=== PATIENT | female | born 1945 | race Caucasian/White ===

== ENCOUNTER 2023-02-16 09:55 | Outpatient (CLI) | payer MEDICARE, BC, SELFPAY | END 2023-02-16 09:56 | disposition home or self-care (01) | LOC: INJ CL 09:56 | PROVIDERS: PCP Internal Medicine; Visit Provider Family Medicine | DX: M54.16 Radiculopathy, lumbar region (principal); M51.36 Other intervertebral disc degeneration, lumbar region | CPT/HCPCS: 64483; Q9966 ==

== ENCOUNTER 2024-07-25 10:50 | Outpatient (CLI) | payer MEDICARE, BC, SELFPAY ==
--- OUTSIDE RECORDS SUMMARY | 2024-07-25 10:55 | XMS_ITS | Continuity of Care Document ---
Author Organization [facility], [facility] Office Address [facility] [facility] [address] [address] Assessment Encounter Date Assessment Date Assessment LastModified by Organization Details LastModified Time 06/12/2024 06/12/2024 Discussed medical conditions with patient today. For tinea pedis, I prescribed an antifungal ointment with two refills to ensure the patient has enough medication. I advised the patient to continue using the ointment, especially on the heel, which is the most stubborn area due to its thicker skin. Refill provided today For onychomycosis, I discussed the use of Formula 3, an antifungal treatment available at the clinic that can improve nail appearance and help eradicate fungus. Patient purchased today. Instructed her on proper use. I informed the patient that this treatment requires daily application and may take up to eight months to show significant improvement. The patient expressed interest in trying this treatment and having their nails done at the clinic to avoid difficulties with clipping. She will return to clinic in 2-3 weeks or sooner should any problems arise. Patient verbalized understanding and is in agreement with the above treatment plan. [email or web address] Not available 06/12/2024 13:50:52 Plan of Treatment Reminders Order Date Submit Date Provider Last Modified By Organization Details Last Modified Time Details Appointments PAL 15 2024 11:00A Angi SILVA DPM Not available Not available Not available Lab None recorded . Referral None recorded . Procedures None recorded . Surgeries None recorded . Imaging None recorded . Medication Orders clotrima zole-bet amethaso ne 1 %-0.05 % topical cream 2023 024 [facility], [place], [address] [place] [address], [id number], 06/12/2024 11:57:53 Patient TargetsNo targets recorded. Patient InstructionsNo instructions recorded. Reason for Referral None Reported. 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, Harp's_; Original Code: 355.6 Orig inal Codesystem : ICD-9-CM C lassificat ion: Medical Co nfirmation Status: Confirmed Not Available [facility] 3 09:01:04 Benign neoplasm of bone 37313513 Active 2013 Osteocarti laginous Exostoses; Original Code: 213.9 Orig inal Codesystem : ICD-9-CM C lassificat ion: Medical Co nfirmation Status: Confirmed Not Available [facility] 3 09:01:04 Onychomyc osis of toenails 341816777 Active 2018 Onychomyco sis of toenails; Original Code: 6227698004 Original Codesystem : SNOMED CT Classif ication: Medical Co nfirmation Status: Confirmed Not Available [facility] 3 09:01:04 Osteoarth ritis 037273468 Active 2013 Osteoarthr itis; Original Code: 715.90 Star ginal Codesystem : ICD-9-CM C lassificat ion: Medical Co nfirmation Status: Confirmed Not Available [facility] 3 09:01:04 Plantar fasciitis 078582558 Active 2018 Plantar fasciitis; Original Code: 437657453 Original Codesystem : SNOMED CT Classif ication: Medical Co nfirmation Status: Confirmed Not Available [facility] 3 09:01:04 Onychomyc osis due to dermatoph yte 250688375 Active 2010 Onychomyco sis..; Original Code: 110.1 Orig inal Codesystem : ICD-9-CM C lassificat ion: Medical Co nfirmation Status: Confirmed Not Available [facility] 3 09:01:04 Tinea pedis 0453873 Active 2010 Tinea pedis..; Original Code: 110.4 Orig inal Codesystem : ICD-9-CM C lassificat ion: Medical Co nfirmation Status: Confirmed Not Available [facility] 3 09:01:04 Disorder of skin 32272478 Active 2013 Fissure in Skin; Original Code: 709.8 Orig inal Codesystem : ICD-9-CM C lassificat ion: Medical Co nfirmation Status: Confirmed Not Available [facility] 3 09:01:04 Psoriasis 8307789 Active 2013 Psoriasis and Similar Disorder; Original Code: 696.8 Orig inal Codesystem : ICD-9-CM C lassificat ion: Medical Co nfirmation Status: Confirmed Not Available [facility] 3 09:01:05 Acquired unequal leg length Active 2012 _Discrepan cy, leg length_; Original Code: 736.81 Star ginal Codesystem : ICD-9-CM C lassificat ion: Medical Co nfirmation Status: Confirmed Not Available [facility] 3 09:01:05 Corns and callus Active 2013 Corns and Callositie s; Original Code: 700 Origin al Codesystem : ICD-9-CM C lassificat ion: Medical Co nfirmation Status: Confirmed Not Available [facility] 3 09:01:05 Problem Notes None recorded. Procedures Surgical History Date Name Laterality Status Provider Name and Address Organization Details Recorded Time 07/03/[address] Stern completed JONATHAN SILVA, NALLELY [address] [place], [address], [facility] 07/03/2024 13:48:02 03/13/[address] Santana completed JONATHAN SILVA DPM [address] [place], [address], [facility] 03/13/2024 17:19:27 02/10/[address] Santana completed Ale Nolen [facility] 02/15/2024 13:00:52 01/26/[address] Santana completed Ale Nolen [place] - [facility] 2024 12:22:10 Imaging Results None recorded. Procedure Notes None recorded. Medical Equipment None Reported. Medications Name Sig Start Date Stop Date Status Note LastModified by Organization Details LastModified Time losartan 50 mg tablet TAKE ONE TABLET BY MOUTH EVERY DAY active Not Available Not Available No t Available latanoprost 0.005 % eye drops INSTILL ONE DROP IN AFFECTED EYE(S) EVERY EVENING active Not Available Not Available No t Available atorvastati n 40 mg tablet TAKE ONE TABLET BY MOUTH AT BEDTIME active Not Available Not Available No t Available atorvastati n 80 mg tablet active Not Available Not Available Not Available carvedilol 25 mg tablet TAKE ONE TABLET BY MOUTH TWICE A DAY WITH MEALS active Not Available Not Available No t Available prednisone 10 mg tablet TAKE 2 TABLETS BY MOUTH TWICE A DAY FOR 3 DAYS THEN TAKE 1 TABLET THREE TIMES A DAY FOR 3 DAYS THEN TAKE 2 TABLETS EVERY DAY FOR 3 DAYS THEN 05/08 completed Not Available Not Available Not Available ketoconazol e 2 % shampoo 05/08 completed Not Available Not Available Not Available loperamide 2 mg capsule TAKE 2 CAPSULES BY MOUTH WITH 1ST LOOSE STOOL THEN 1 CAPSULE WITH EACH SUBSEQUEN T LOOSE STOOL MAX 8 CAPSULES PER 24HRS 05/08 completed Not Available Not Available Not Available azithromyci n 250 mg tablet TAKE TWO TABLETS BY MOUTH ONE DOSE ON THE FIRST DAY, THEN TAKE ONE DAILY THEREAFTE R. 05/08 completed Not Available Not Available Not Available fluconazole 150 mg tablet TAKE ONE TABLET BY MOUTH ONCE active Not Available Not Available No t Available clopidogrel 75 mg tablet 05/08 completed Not Available Not Available Not Available minoxidil 2.5 mg tablet TAKE ONE-HALF TABLET BY MOUTH EVERY DAY 05/08 completed Not Available Not Available Not Available tramadol 50 mg tablet TAKE ONE TABLET BY MOUTH TWICE A DAY active Not Available Not Available No t Available triamcinolo ne acetonide 0.1 % topical cream APPLY TOPICALLY TO AFFECTED AREA(S) TWO TIMES A DAY 05/08 completed Not Available Not Available Not Available spironolact one 25 mg tablet TAKE ONE TABLET BY MOUTH EVERY DAY active Not Available Not Available No t Available trazodone 100 mg tablet TAKE ONE-HALF TABLET BY MOUTH AT BEDTIME NEEDED FOR SLEEP active Not Available Not Available No t Available triamcinolo ne acetonide 0.1 % topical ointment active Not Available Not Available Not Available clotrimazol e-betametha sone 1 %-0.05 % topical cream APPLY TO THE AFFECTED SURROUNDI NG AREA OF SKIN BY TOPICAL ROUTE 2 TIMES PER DAY IN THE MORNING AND EVENING FOR 2 WEEKS active Not Available Not Available No t Available gabapentin 300 mg capsule TAKE ONE CAPSULE BY MOUTH TWICE A DAY THEN TAKE TWO CAPSULES BY MOUTH AT BEDTIME active Not Available Not Available No t Available codeine 10 mg-guaifene sin 100 mg/5 mL oral liquid TAKE 5ML BY MOUTH EVERY 4 HOURS IF NEEDED FOR COUGH 05/08 completed Not Available Not Available Not Available furosemide 20 mg tablet TAKE ONE TABLET BY MOUTH EVERY DAY NEEDED FOR LEG EDEMA, GAIN OF 5LBS IN 2-3 DAYS OR MORE WINDED THAN USUAL LAYING DOWN active Not Available Not Available No t Available clobetasol 0.05 % topical ointment APPLY ONE APPLICATI ON TOPICALLY AT BEDTIME. APPLY TO VULVA AND PERIRECTA L AREA FOR UP TO 2 WEEKS AT A TIME active Not Available Not Available No t Available ketoconazol e 2 % topical cream APPLY TO AFFECTED AREA(S) TWO TIMES A DAY 05/08 completed Not Available Not Available Not Available clobetasol 0.05 % scalp solution APPLY TO SCALP 2X DAILY FOR UP TO TWO WEEKS AT A TIME. TAKE A TWO WEEK BREAK. REPEAT. active Not Available Not Available No t Available finasteride 1 mg tablet TAKE ONE TABLET BY MOUTH EVERY DAY active Not Available Not Available No t Available Vitals None Recorded Social History None recorded. Functional Status None recorded. Mental Status None recorded. Family History Nothing Reported. Medical History No medical history recorded. Gynecological HistoryNo gynecological history recorded. 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 51063 G57.62 [id number] JONATHAN SILVA DPM [facility] [address] [place] [address] 06/12/2024 11:32:06 06/13/2024 13:14:17 Tinea pedis 7257447 B35.3 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 15276627 M19.072 Sabrina n euroma of left foot 9134069228 06015 G57.62 Health Concerns Section Related Observation LastModified by Organization Detai ls LastModified Time None Recorded Concern Status LastModified by Organization Details LastModified Time None Recorded Payers Encounter Date Sequence Insurance Name Policy Number Policy Navarro Covered Member ID Navarro Member ID Guarantor Name 06/12/2024 1 [employer]: ([place]IC[place]ACEMENT PPO) [id number] Sheila jenkins [id number] Sheila romero Notes Date Note Type Note Provider Name and Address Organization Details Recorded Time 06/12/2024 text/html The patient presents today for follow-up management of tinea pedis. The patient reports using the prescribed antifungal ointment for two weeks, but has since run out of the medication. The patient then tried clobetasol propionate, which she believes improved the condition. The patient mentions that the heel still shows some signs of the condition but overall, the foot is much better. The patient also reports no issues with their previously diagnosed neuroma. She also complains of thickness and discoloration to her toenails. JONATHAN SILVA DPM [address] [place], [address], [facility] - [facility] 06/12/2024 13:51:13 OBGyn Episode No OBEpisode recorded.
--- OUTSIDE RECORDS SUMMARY | 2024-07-25 10:55 | XMS_ITS | Continuity of Care Document ---
Author Organization [facility] - [facility], [place] Office Address [address] [facility] [address] [place] [address] Assessment Encounter Date Assessment Date Assessment LastModified by Organization Details LastModified Time 05/22/2024 05/22/2024 Discussed medical conditions with patient today. For the tinea pedis, I advised the patient to continue using the antifungal medication twice a day and to try wearing a sock at night to help trap the medication. I recommended continuing this regimen for another two weeks. If the condition does not improve, we may consider a short course of oral antifungal medication. I also suggested using Lysol in the shoes to kill any remaining fungus. For the left third inner space neuroma, I confirmed that the patient is using orthotics consistently and finds them helpful. I discussed the option of trying a plain liner insert instead of the pedpillow insert to see if it provides a better fit. These were provided for her today to try. She will return to clinic in 2-3 weeks or sooner should any problems arise. Patient verbalized understanding and is in agreement with the above treatment plan. [email or web address] Not available 05/22/2024 12:50:20 Plan of Treatment Reminders Order Date Submit Date Provider Last Modified By Organization Details Last Modified Time Details Appointments PAL 15 025 11:00AM JONATHAN SILVA DPM Not available Not available Not available Lab None record ed. Referral None record ed. Procedures None record ed. Surgeries None record ed. Imaging None record ed. Medication Orders None record ed. Patient TargetsNo targets recorded. Patient InstructionsNo instructions recorded. Reason for Referral None Reported. 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, Harp's_; Original Code: 355.6 Orig inal Codesystem : ICD-9-CM C lassificat ion: Medical Co nfirmation Status: Confirmed Not Available [facility] 3 09:01:04 Benign neoplasm of bone 43122849 Active 2013 Osteocarti laginous Exostoses; Original Code: 213.9 Orig inal Codesystem : ICD-9-CM C lassificat ion: Medical Co nfirmation Status: Confirmed Not Available [facility] 3 09:01:04 Onychomyc osis of toenails 250849006 Active 2018 Onychomyco sis of toenails; Original Code: 7038152994 Original Codesystem : SNOMED CT Classif ication: Medical Co nfirmation Status: Confirmed Not Available [facility] 3 09:01:04 Osteoarth ritis 485961988 Active 2013 Osteoarthr itis; Original Code: 715.90 Star ginal Codesystem : ICD-9-CM C lassificat ion: Medical Co nfirmation Status: Confirmed Not Available [facility] 3 09:01:04 Plantar fasciitis 422008617 Active 2018 Plantar fasciitis; Original Code: 046295529 Original Codesystem : SNOMED CT Classif ication: Medical Co nfirmation Status: Confirmed Not Available [facility] 3 09:01:04 Onychomyc osis due to dermatoph yte 629712877 Active 2010 Onychomyco sis..; Original Code: 110.1 Orig inal Codesystem : ICD-9-CM C lassificat ion: Medical Co nfirmation Status: Confirmed Not Available [facility] 3 09:01:04 Tinea pedis 5307355 Active 2010 Tinea pedis..; Original Code: 110.4 Orig inal Codesystem : ICD-9-CM C lassificat ion: Medical Co nfirmation Status: Confirmed Not Available [facility] 3 09:01:04 Disorder of skin 43911340 Active 2013 Fissure in Skin; Original Code: 709.8 Orig inal Codesystem : ICD-9-CM C lassificat ion: Medical Co nfirmation Status: Confirmed Not Available [facility] 3 09:01:04 Psoriasis 5574175 Active 2013 Psoriasis and Similar Disorder; Original [...] DR Stern completed JONATHAN SILVA, NALLELY [address] [place], [address], [facility] 07/03/2024 13:48:02 03/13/[address] Santana completed JONATHAN SILVA DPM [address] [place], [address], [facility] 03/13/2024 17:19:27 02/10/[address] Santana completed Ale Nolen [facility] 02/15/2024 13:00:52 01/26/[address] 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 19209740 M19.072 Harp's n euroma of left foot 0019999721 25278 G57.62 [id number] JONATHAN RICARDO [facility] Office [address] [place] [address] 05/22/2024 11:05:46 05/22/2024 17:03:39 Tinea pedis 2003701 B35.3 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 29618459 M19.072 Harp's n euroma of left foot 2200238263 65317 G57.62 Health Concerns Section Related Observation LastModified by Organization Detai ls LastModified Time None Recorded Concern Status LastModified by Organization Details LastModified Time None Recorded Payers Encounter Date Sequence Insurance Name Policy Number Policy Navarro Covered Member ID Navarro Member ID Guarantor Name 05/22/2024 1 [facility]: ([place]ICARE REPLACEMENT PPO) [id number] Sheila Angi Adolfo gregory [id number] Sheila romero Notes Date Note Type Note Provider Name and Address Organization Details Recorded Time 05/22/2024 text/html The patient presents today for a follow-up of tinea pedis and left third inner space neuroma. The patient reports using the antifungal medication twice a day, morning and night, but still experiences some dryness. The condition between the toes has improved significantly, but there is still flaking on the bottom of the left foot, particularly towards the mid-arch and the ball of the foot. The patient also reports using the refurbished orthotics consistently, which have been helpful. The patient currently uses a ped pillow insert along with her custom orthoses in the shoes, to help with filling the increased depth of the shoes. The patient finds this setup comfortable but is open to trying a plain liner insert. JONATHAN SILVA, NALLELY [address] [place], [address], [facility] - [facility] 05/22/2024 12:50:31 OBGyn Episode No OBEpisode recorded.
--- OUTSIDE RECORDS SUMMARY | 2024-07-25 10:55 | XMS_ITS | Clinical Summary ---
Author Organization [employer] [facility] Address [place], [place] [address] Care Team Providers Care Order Clerk Name Role Phone Shaina Singh MD Primary Care Provider [phone] Eduardo Long MD Unavailable [phone] Fara Artis MD Unavailable Nurses, Advanced Heart Failure Unavailable + Maged Sargent MD Unavailable Allergies Active Allergy Reactions Criticality Noted Date Comments Ciprofloxacin Rash 11/10/2012 Cephalexin Hives 08/05/2006 04/06/24 patient states she does not recall having allergic reaction to this or other antibiotics in the past. She does not think she had a severe reaction. Pollen Extracts Other - Describe In Comment Field High 01/27/2018 Causes labored breathing. Pravastatin Myalgia 07/04/2008 Sulfa (Sulfonamide Antibiotics) Hives 08/05/2006 Medications Medication Sig Dispensed Refills Start Date End Date Status latanoprost (XALATAN) 0.005 % ophthalmic solutionIndications:Glau coma Place 1 Drop into left eye at bedtime. 5 Active calcium carbonate-vitamin D3, 600 mg-400 unit, 600 mg-10 mcg (400 unit) tablet Take 1 Tablet by mouth once daily with a meal. Active gabapentin (NEURONTIN) 300 mg capsuleIndications:Neuro genic claudication due to lumbar spinal stenosis,Chronic bilateral low back pain without sciatica TAKE ONE CAPSULE BY MOUTH TWICE A DAY THEN TAKE TWO CAPSULES BY MOUTH AT BEDTIME 360 Capsule 3 4 Active Additional Information Patient taking differently: 600 mg Oral BEDTIME, (No instructions reported), Informant: Patient's Recall, Reported on 03/29/2024 carvediloL (COREG) 25 mg tabletIndications:Chroni c systolic heart failure (HC) Take 1 Tablet (25 mg) by mouth two times daily with meals. 180 Tablet 3 4 Active traZODone (DESYREL) 100 mg tabletIndications:Chroni c insomnia Take 0.5 Tablets (50 mg) by mouth at bedtime if needed for Sleep. 45 Tablet 3 4 Active losartan (COZAAR) 50 mg tabletIndications:Non-is chemic cardiomyopathy (HC) TAKE ONE TABLET BY MOUTH EVERY DAY 90 Tablet 3 4 Active atorvastatin (LIPITOR) 80 mg tabletIndications:Pure hypercholesterolemia Take 1 Tablet (80 mg) by mouth at bedtime. 90 Tablet 2 4 Active aspirin (ECOTRIN) 81 mg enteric coated tabletIndications:Caroti d artery disease without cerebral infarction (HC) Take 1 Tablet (81 mg) by mouth once daily with a meal. 4 Active furosemide (LASIX) 20 mg tabletIndications:Non-is chemic cardiomyopathy (HC),Chronic systolic heart failure (HC) 1 tab Po daily prn: leg edema, gain 5 lbs in 2-3 days, more winded than usual laying down 30 Tablet 1 4 Active spironolactone (ALDACTONE) 25 mg tabletIndications:Acute systolic heart failure (HC) Take 1 Tablet (25 mg) by mouth once daily. 90 Tablet 3 4 Active traMADoL (ULTRAM) 50 mg tabletIndications:Lumbos acral radiculopathy at L5 Take 1 Tablet (50 mg) by mouth two times daily. 60 Tablet 4 Active Additional Information Patient taking differently:50 mg Oral BID,prn, Reported on 07/21/2024 finasteride (PROPECIA) 1 mg tablet Take 1 Tablet by mouth once daily. Active clotrimazole-betamethaso ne 1%-0.05% cream APPLY TO THE AFFECTED SURROUNDING AREA OF SKIN BY TOPICAL ROUTE 2 TIMES PER DAY IN THE MORNING AND EVENING FOR 2 WEEKS 4 Active nystatin 100,000 unit/g ointmentIndications:Yeas t vaginitis Apply topically to affected area(s) two times daily. 30 g 4 Active fluconazole (DIFLUCAN) 150 mg tabletIndications:Yeast vaginitis Take 1 Tablet (150 mg) by mouth one time for 1 dose. May repeat dose in 72 hours if needed. 2 Tablet 4 024 Active Problems Patient Care Coordination No te Formatting of this note migh t be different from the original. HF/Structural Research Eligibility Review Date: 09/26/19 The patient did not qualify for any currently enrolling studies at the time of this review. 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 This has since been rescheduled twice. The symptoms have improved now that she isn't coughing, and she is not sure whether she is going to have this done. Subacute and chronic vulvitis 01/13/2022 Overview (06/18/2024): Erythema and thickening of the skin noted. Vulvar care handout provided at the last visit, and she has made many changes. She had been using panti liners which were likely causing chronic irritation. She is now using only cotton pads that are unscented. Vaginitis panel and vaginal fungal culture were negative. She has been treated for lichen simplex chronicus and is just finishing the last of the medications. Symptoms are improved and exam is significantly improved. These skin changes will likely resolve completely with more time. Greater trochanteric bursitis of right hip 11/07 Interstitial lung disease 08/18/2019 ICD (implantable cardioverter-defibrillator), dinora al, in situ 07/07/2019 Presence of automatic (implantable) cardiac defi brillator 07/07/2019 Arthritis of right acromioclavicular joint 09/22 Glenohumeral arthritis, right 09/22/2018 Bundle branch block, left 07/06/2017 Degeneration of intervertebral disc of cervical region 07/06/2017 Osteoarthritis of shoulder 07/06/2017 Chronic systolic CHF (congestive heart failure) 06/23/2017 Non-rheumatic mitral regurgitation 06/23/2017 Spondylosis of lumbar region without myelopathy or radiculopathy 06/23/2017 DDD (degenerative disc disease), lumbar 02/11/20 Scoliosis of lumbar spine 02/10/2017 Non-ischemic cardiomyopathy 11/07/2016 Overview (03/16/2017): S/P FISH BIN TENDER-D 03/15/2017 Neurogenic claudication due to lumbar spinal deidre nosis 07/03/2016 Spinal stenosis, lumbar region with neurogenic c laudication 07/03/2016 Skin cancer, basal cell 12/23/2015 Overview (12/23/2015): Right forearm Insomnia 04/11/2010 Atrophic vaginitis 07/30/2009 Pure hypercholesterolemia Mild intermittent asthma without complication Overview (07/03/2016): Fibromyalgia DDD (degenerative disc disease), cervical Primary osteoarthritis involving multiple joints Systolic heart failure LBBB (left bundle branch block) Resolved Problems Problem Noted Date Diagnosed Date Resolved Date TIA (transient ischemic attack) 03/30/2024 04/25/2024 Slurred speech 03/29/2024 04/25/2024 Stroke-like symptom 03/29/2024 04/25/20 24 Pain of right hip joint 11/08/2019 08/3 Pulmonary fibrosis 08/29/2019 3 Acute renal insufficiency 07/09/2019 Pneumonia of right upper lob e due to infectious organism 07/08/2019 05/28/2020 Hypoxia 07/08/2019 07/13/2019 Viral syndrome 07/07/2019 07/13/2019 Hypotension 07/07/2019 12/24/2021 Personal history of tobacco use 07/07/2019 04/28/2022 Mild intermittent asthma wit h acute exacerbation 07/07/2019 07/13/2019 Right shoulder pain 09/22/2018 04/28/20 22 Acute systolic heart failure 11/07/2016 11/30/2016 NSTEMI (non-ST elevated myoc ardial infarction) 11/04/2016 11/16/2016 Unstable angina 11/03/2016 11/04/2016 Acute systolic congestive heart failure 11/03/2016 11/04/2016 Onychomycosis of toenail 07/20/201111/2015 Menopausal symptoms 05/21/2009 03/08/20 21 Depressive disorder, not elsewhere classified 07/04/2008 Osteoarthritis 11/04/2016 Encounters Date Type Department Care Team Description 07/21/2024 10:40 AM CONCRETE FINISHER Office Visit [facility] [place] [address] [facility] [address] [phone] Jean Paul Faulkner MD Follow Up (patient states everything is going good. 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 Symptom onset x about 1 week) 07/14/2024 Travel 07/12/2024 Travel 06/30/2024 Nurse Triage [facility] [address] [place] [address] Pcp, No Vaginal Pain 06/15/2024 1:40 PM CDT Office Visit [facility] [address] [place] [address] Lucas Ceballos MD Musculoskeletal Problem (F/u back pain ) 06/15/2024 Travel 06/13/[address] [phone] Shaina Singh MD Results 06/07/2024 1:30 PM CDT Ancillary Procedure [address] [phone] 06/07/[address] [phone] Shaina Singh MD Medication Management (POSSIBLE BLADDER INFECTION) 06/07/2024 Travel 05/24/2024 1:00 PM CDT Office Visit [facility] [address] [place] [address] Sabino Munguia MD CV Vascular Est (1 month follow up; s/p Right TCAR 8/9.) 05/24/2024 Travel 05/03/2024 8:45 AM CDT - 05/03/2024 11:59 PM CDT Hospital Encounter [facility] [address] [place] [address] Sabino Munguia MD Leistner, Joseph S, R.T. (ARRT) Bilateral carotid artery stenosis; Presence of internal carotid stent 05/03/2024 Travel 04/26/2024 Telephone [facility] [place] [address] [facility] [address] [phone] Jean Paul Faulkner MD Appointment Request ([facility]) 04/25/2024 10:10 AM CDT Office Visit [facility] [address] [place] [place] [address] Shaina Singh MD Medication Management (Pt states at irby TIA took off some medications and pt wants to know if she should restart the meds); Fatigue (Onset first part of Mar when had TIA) 04/25/2024 Travel from Last 3 Months Immunizations Name Administration Dates Next Due COVID-19 VACCINE SPIKEVAX (M ODERNA 50MCG/0.5ML) 12YO+ PFS 07/07/2023 COVID-19 vaccine (Pfizer-Bio NTech 30mcg/0.3mL) 12YO+ BIVALENT PF, MDV 05/25/2022 COVID-19 vaccine (Pfizer-Bio NTech 30mcg/0.3mL) 12YO+ ODESSA-SUCROSE PF, MDV 01/28/2022 COVID-19 vaccine (Pfizer-Bio NTech 30mcg/0.3mL) PF, MDV 06/05/2021,11/27/2020,11/06/2020 INFLUENZA, IIV3 PF (AGE >= 6 MO) 11/11/2012,07/01,08/13/2009 Influenza RIV4 (Age 18+ Year s) PRESERV FREE 06/14/2019 Influenza, High-dose Inactivated 06/30/2016 Influenza, High-dose Quadriv alent Inactivated 05/30/2021 Influenza, IIV3 (Age >=3 years) 07/20/20 11,08/13/2009,07/04/2008,2006,07/26/2006 Influenza, Inactivated AIIV4 (Age 65+ Years) Preserv Free 07/07/2023,05/08/2022,05/28/2020 Influenza, Inactivated IIV3 (Age 65+ Years) Preserv Free 05/15/2024,06/14/2019,07/13/2018,2016 Pneumococcal Poly,23-Valent (Pneumovax) 11/11/2012,12/19/2002 Pneumococcal conj 13-Valent (Prevnar 13) 12/11/2015 Td (Age >=7 Years) 12/19/2002 Tdap 12/13/2015 Zoster (Shingrix-RZV, recombinant) 10/17/2021, Zoster (Zostavax-ZVL, live) 12/13/2015 Family History Medical History Relation Name Comments Other Brother 4 lung cancer Cancer-colon Father of [place] Heart Disease Father Cancer Sister UTERINE Cancer-breast Sister and her daught er Relation Name Status Comments Brother 1 Alive Brother 2 Alive Brother 3 Brother 4 Father (Age 69) Mother Sister Social History Tobacco Use Types Packs/Day Years Used Date Smoking Tobacco: Former Cigarettes 0.8 29 0 08/30/1966 - 08/30/1995 Smokeless Tobacco: Never Tobacco Cessation:Counseling Given: Not Answered Alcohol Use Standard Drinks/Week Comments Yes 0 (1 standard drink = 0.6 oz pur e alcohol) occ wine PHQ-2 Answer Date Recorded PHQ-2 TOTAL SCORE 4 07/19/2024 Social Connections Answer Date Recorded Do you often feel lonely or isolated from those around you? 0 03/27/2024 Financial Resource Strain Answer Date R ecorded Difficulty of Paying Living Expenses 3 03/27/2024 Difficulty of Paying Living Expenses Not on file 03/27/2024 Food Insecurity Answer Date Recorded Do you worry your food will run out before you are able to buy more? 1 03/27/2024 Transportation Needs Answer Date Record ed Does lack of transportation keep you from medica l appointments? 1 03/27/2024 Does lack of transportation keep you from work, meetings or getting things that you need? 1 03/27/2024 Housing Stability Answer Date Recorded What is your housing situation today? 1 03/27/2024 Sex and Gender Information Value Date Recorded Sex Assigned at Not on file Gender Identity Not on file Sexual Orientation Not on file Obstetrics History Para Term AB IAB SAB Ectopic Multiple Livin g Live Births 2 2 2 Date Outcome GA Total Labor Labor/2nd/3rd Weight Sex Type Anes PTL Brigid A1 A5 Name Clin Para Para Last Filed Vital Signs Vital Sign Reading Time Taken Comments Blood Pressure 112/68 07/21/2024 10:57 AM CONCRETE FINISHER Pulse 60 07/21/2024 10:57 AM CONCRETE FINISHER Temperature 36.9 C (98.4 F) 07/14/2024 2:48 PM CONCRETE FINISHER Respiratory Rate 16 07/14/2024 2:48 PM CONCRETE FINISHER Oxygen Saturation 96% 07/21/2024 10:57 AM CONCRETE FINISHER Inhaled Oxygen Concentration - - Weight 77.1 kg (170 lb) 07/21/2024 10:57 AM CONCRETE FINISHER Height 167.6 cm (5' 6) 07/21/2024 10:57 AM CONCRETE FINISHER Body Mass Index 27.44 07/21/2024 10:57 AM CONCRETE FINISHER Plan of Treatment Upcoming Encounters Date Type Department Care Team (Late st Contact Info) Description 07/25/2024 11:20 AM CONCRETE FINISHER Office Visit [facility] [address] [place] [phone] Lucas Ceballos MD [address] [place] [address] Arrived 09/14/2024 1:00 PM CONCRETE FINISHER Office Visit [facility] [address] [place] [address] Lucas Ceballos MD [address] [place] [address] 10/13/2024 Cardiac Device Check [facility] [phone] Health Maintenance Due Date Last Done Comments RSV vaccine for adults or (1 - 1-dose 75+ series) 02/07/2020 COVID-19 vaccine series ( season) 2024 07/07/2023, 05/25/2022, 01/28/2022, Additional history exists Medicare Wellness for age 65+ 07/20/2025 07/19/2024 BMI (ht and wt on same day) for age 18+ 07/21/2025 07/21/2024, 04/25/2024, 03/27/2024, Additional history exists Depression screening for age 12+ 07/21/2025 07/21/2024, 07/19/2024, 04/26/2024, Additional history exists Tetanus booster 12/12/2025 12/13/2015, 12/19/2002 Pneumococcal series for age 65+ Completed 12/11/2015, 11/11/2012, 12/19/2002 Tdap Completed 12/13/2015 Hepatitis C screening for ag e 18-79 Completed 03/07/2021 Zoster (shingles) series for age 50+ Completed 10/17/2021, 08/11/2021, 12/13/2015 Influenza for age 65+ Completed 05/15/2024 , 07/07/2023, 05/08/2022, Additional history exists DEXA/DXA scan for age 65+ Completed 06/07/2024 Medical Devices Implanted Type Area Toolroom Keeper Device Identifier Shelf Expiration Date Model / Serial / Lot [id number] one Matrix 1x5cm Magnifuse Pcdbm Implanted:Qty: 1 on 06/22/2017 by Kavin Edwards MD at [facility] Explanted:at [facility] (Quantity not on file) N/A: Spine Med[employer]onic Spine/Ortho 11/27/2017 [id number] / [id number] / [id number] one Matrix 6cc [place] Dbf Putty Dbm Implanted:Qty: 1 on 06/22/2017 by Kavin Edwards MD at [facility] Explanted:at [facility] (Quantity not on file) N/A: Spine Medtronic Spine/Ortho 04/05/2019 [id number] / [id number] / Spacer Lmbr 7-77l69vq 11deg Elevate Extra-Lordotic Peek Titn - [id number] Implanted:Qty: 1 on 06/22/2017 by Kavin Edwards MD at [facility] N/A: Spine [employer] Spine/Ortho 06/04/2024 [id number] / / [id number] Set Screw Lmbr Ant 5.5mm Solera Break Off - [id number] Implanted:Qty: 4 on 06/22/2017 by Kavin Edwards MD at [facility] N/A: Spine Medtronic Spine/Ortho [id number]# / / Screw Lmbr Post 5.5x40mm Solera 5.5/6 Va Cocr - [id number] Implanted:Qty: 1 on 06/22/2017 by Kavin Edwards MD at [facility] N/A: Spine Medtronic Spine/Ortho [id number]# / / Screw Lmbr Post 5.5x45mm Solera 5.5/6 Va Cocr - [id number] Implanted:Qty: 3 on 06/22/2017 by Kavin Edwards MD at [facility] N/A: Spine Medtronic Spine/Ortho [id number]# / / Rosas Lmbr 35x5.5mm Solera 5.5/6cvd Titnm - [id number] Implanted:Qty: 2 on 06/22/2017 by Kavin Edwards MD at [facility] N/A: Spine Medtronic Spine/Ortho [id number] # / / Sling Pelvic Altis Sis Continence - [id number] Implanted:Qty: 1 on 04/30/2022 by Kavin Javed MD at [facility] N/A: Vagina [employer] 06/25/2024 [id number] / / [id number] Procedures Procedure Name Priority Date/Time Associated Diagnosis Comments AMB EPIDURAL STEROID INJECTION Routine 07/25/2024 7:59 AM CONCRETE FINISHER S/P lumbar spinal fusion Lumbosacral radiculopathy at L5 Lumbar foraminal stenosis DIFFUSION STUDY Routine 07/21/2024 10:40 AM CONCRETE FINISHER Pulmonary fibrosis (HC) AMB SPIROMETRY WO BRONCHODILATOR Routine 07/21/2024 10:40 AM CONCRETE FINISHER Pulmonary fibrosis (HC) URINALYSIS MICROSCOPIC STAT 3:02 PM CONCRETE FINISHER Dysuria URINE CULTURE STAT 07/14/2024 3:02 PM CONCRETE FINISHER Dysuria UA W/ SEDIMENT EXAM REFLEXED PER CRITERIA STAT 07/14/2024 3:02 PM CONCRETE FINISHER Dysuria XR DXA BONE DENSITY 1 SITE AXIAL AND 1 SITE PERIPHERAL Routine 06/07/2024 1:18 PM CDT Height loss US CAROTID DUPLEX BILATERAL Routine 05/03/2024 9:20 AM CDT Bilateral carotid artery stenosis Presence of internal carotid stent ANTI HCV Routine 03/07/2021 12:41 PM CDT Need for hepatitis C screening test from Last 3 Months or Most Recently Relevant to Health Maintenance Results * AMB SPIROMETRY WO BRONCHODILATOR (07/21/2024 10:40 AM CONCRETE FINISHER) Jean Paul Rich MD - 07/21/2024 10:40 AM CONCRETE FINISHER Jean Paul Faulkner MD 07/21/2024 2:03 PM Pulmonary Function Test Interpretation [facility] Ordering Provider: No ref. provider found Reason for Study: (J84.10) Pulmonary fibrosis (HC) (primary encounter diagnosis) Date of study: 07/21/2024 SPIROMETRY Normal. DIFFUSION Moderately reduced. Jean Paul Faulkner MD Interventional Pulmonology [facility] Pager: [phone] Jean Paul Faulkner MD NURSING ORD * DIFFUSION STUDY (07/21/2024 10:40 AM CONCRETE FINISHER) Jean Paul Rich MD - 07/21/2024 10:40 AM CONCRETE FINISHER Jean Paul Faulkner MD 07/21/2024 2:03 PM Pulmonary Function Test Interpretation [facility] Ordering Provider: No ref. provider found Reason for Study: (J84.10) Pulmonary fibrosis (HC) (primary encounter diagnosis) Date of study: 07/21/2024 SPIROMETRY Normal. DIFFUSION Moderately reduced. Jean Paul Faulkner MD Interventional Pulmonology [facility] Pager: [phone] Jean Paul Faulkner MD PFT ORD * URINALYSIS MICROSCOPIC (07/14/2024 3:02 PM CONCRETE FINISHER) RBC None Seen 0-2, None Seen /HPF 07/14/2024 3:35 PM [facility] WBC 0-2 0-2, 3-5, None Seen /HPF 07/14/2024 3:35 PM [facility] BACTERIA Few None Seen, Rare, Few Bacteria/ HPF 07/14/2024 3:35 PM [facility] EPITHELIAL CELLS Few None Seen, Few Epi/HPF 07/14/2024 3:35 PM [facility] Mucus Present 07/14/2024 3:35 PM [facility] Urine URINE SPECIMEN / Unknown Non-Blood / Unknown 07/14/2024 3:02 PM CONCRETE FINISHER 07/14/2024 3:02 PM CONCRETE FINISHER Narrative Authorizing Provider Result Delilah Felix NP URINE [facility] [address] [place] [address] * URINE CULTURE (07/14/2024 3:02 PM CONCRETE FINISHER) CULTURE <10,000 CFU/mL multiple organisms 07/15/2024 3:29 PM CONCRETE FINISHER [facility] Urine URINE SPECIMEN / Unknown Non-Blood / Unknown 07/14/2024 3:02 PM CONCRETE FINISHER 07/14/2024 3:02 PM CONCRETE FINISHER Narrative Authorizing Provider Result Delilah Felix NP MICROBIOLOGY Performing Organization Address City/[facility]/ZIP Co de Phone Number [facility] [address] [place] [address], * (ABNORMAL) UA W/ SEDIMENT EXAM REFLEXED PER CRITERIA (07/14/2024 3:02 PM CONCRETE FINISHER) COLOR Yellow Yellow Color 07/14/2024 3:24 PM [facility] CLARITY Clear Clear Clarity 07/14/2024 3:24 PM [facility] SPECIFIC GRAVITY,URINE 1.025 1.010, 1.015, 1.020, 1.025 07/14/2024 3:24 PM [facility] PH,URINE 5.5 6.0, 7.0, 8.0, 5.5, 6.5, 7.5, 8.5 07/14/2024 3:24 PM [facility] UROBILINOGEN, QUALITATIVE Normal Normal EU/dl 07/14/2024 3:24 PM [facility] PROTEIN, URINE Negative Negative mg/dL 07/14/2024 3:24 PM [facility] GLUCOSE, URINE Negative Negative mg/dL 07/14/2024 3:24 PM [facility] KETONES,URINE Negative Negative mg/dL 07/14/2024 3:24 PM [facility] BILIRUBIN,URI NE Negative Negative 07/14/2024 3:24 PM CONCRETE FINISHER [facility] OCCULT BLOOD,URINE Negative Negative 07/14/2024 3:24 PM CONCRETE FINISHER [facility] NITRITE Negative Negative 07/14/2024 3:24 PM CONCRETE FINISHER [facility] LEUKOCYTE ESTERASE Small(A) Negative 07/14/2024 3:24 PM CONCRETE FINISHER [facility] Urine URINE SPECIMEN / Unknown Non-Blood / Unknown 07/14/2024 3:02 PM CONCRETE FINISHER 07/14/2024 3:02 PM CONCRETE FINISHER Mayra Felix NP URINE [facility] [address] [place] [address] * XR DXA BONE DENSITY 1 SITE AXIAL AND 1 SITE PERIPHERAL (06/07/2024 1:18 PM CDT) Anatomical Region Laterality Modality LUMBAR SPINE Computed Radiogr aphy Impressions 06/08/2024 6:14 AM CDT Osteopenia. RECOMMENDATIONS: The National Osteoporosis Foundation recommends pharmacologic treatment for patients with T-scores of -2.5 or less, patients with prior history of fragility fractures, or patients with 10-year probability of greater than 3% at hips or greater than 20% of suffering major osteoporotic fractures. Recommend continued optimization of calcium and vitamin D intake through dietary means and/or supplementation and regular exercise. SABINO BOYLE M.D. [employer] [facility] [email or web address] Narrative 06/08/2024 6:14 AM CDT For Patients: Results are automatically released to your [employer] ([employer]) account once available, in compliance with federal regulations. This means that you may see your results before your provider has had a chance to review them. Please allow 2-3 business days for your provider to comment on the results. XR DXA Bone Mineral Density (BMD) EXAM LOCATION: [facility] [address] [facility] [id number] PATIENT NAME: Sheila Vidal DATE OF : 1945 EXAM DATE: 06/07/2024 REQUESTING PROVIDER: Shaina Singh MD GENDER AT : female HEIGHT: 64 inches WEIGHT: 169 pounds MENOPAUSAL STATUS: Postmenopausal RACE/ETHNICITY: White RISK FACTORS: Height Loss (2 inches or more), Smoking (prior), White Race, Lower Spine Surgery CURRENT MEDICATION FOR BONE LOSS: NONE INDICATION: Height loss greater than one inch COMPARISON DATE(S): None DXA scans are compared to prior studies for a patient only when the two (or more) studies were performed on the same scanner. It is not possible to compare data generated on one scanner to data from another because there are not standards in DXA equipment. This applies even if the two scanners are made by the same residential designer. PROCEDURE: Dual-energy x-ray absorptiometry performed with routine technique. Reporting is completed in the form of a T-score. The T-score represents the standard deviation from peak bone mass based on young healthy adult. A Z-score is used for diagnosis in premenopausal women, and for men under the age of 50. FINDINGS: RESULTS FEMUR Left femoral neck BMD: 0.752 g/cm2 T-Score: - 2.1 Z-Score: - 0.2 Right femoral neck BMD: 0.757 g/cm2 T-Score: - 2.0 Z-Score: - 0.2 Left total hip BMD: 0.817 g/cm2 T-Score: - 1.5 Z-Score: + 0.2 Right total hip BMD: 0.844 g/cm2 T-Score: - 1.3 Z-Score: + 0.4 RESULT FOREARM Left Forearm distal radius BMD: 0.802 g/cm2 T-Score: - 1.0 Z-Score: + 1.7 WHO criteria: Normal: T-score at or above -1 SD Osteopenia: T-score between -1.1 and -2.4 SD Osteoporosis: T-score at or below -2.5 SD LEFT: FRAX RISK CALCULATION (USED FOR OSTEOPENIA ONLY): 10-year probability of major osteoporotic fracture: 15.6%. 10-year probability of hip fracture: 4.6%. Shaina Singh MD DEXA * US CAROTID DUPLEX BILATERAL (05/03/2024 9:20 AM CDT) Anatomical Region Laterality Modality CAROTID, NECK Ultrasound 05/03/2024 8:58 AM CDT Narrative 05/03/2024 3:19 PM CDT VASCULAR ULTRASOUND REPORT SHEILA VIDAL : 1945 Study Date: 05/03/2024 8:58:43 AM Age: 79 years Tech: XAVI Gender: F Referring MD: SABINO MUNGUIA Site: [facility] Study performed: Carotid Indication for Study: follow-up stent Study Quality: Good TECHNIQUE: The extracranial carotid arteries, vertebral arteries and subclavian arteries were examined per exam protocol with duplex ultrasound, color-flow and spectral Doppler. Flow velocities including peak systolic (PSV), end diastolic (EDV), and velocity ratios if applicable were documented at sites per exam protocol. IMPRESSION: 1. Based on the ICA velocities, ICA/CCA ratio, and 2D images there is plaque causing <50% stenosis in the right internal carotid artery and there is plaque causing <50% stenosis in the left internal carotid artery. 2. Normal antegrade flow in the right vertebral artery and normal antegrade flow in the left vertebral artery. 3. Multiphasic flow in the right subclavian artery consistent with no flow limiting stenosis and multiphasic flow in the left subclavian artery consistent with no flow limiting stenosis. COMPARISON: Compared to prior study 04/15/2015, s/p stenting. FINDINGS: There appears to be a less than 50 percent stenosis in the bilateral ICA. The right CCA/ICA stent appears to be patent without stenosis. RIGHT FINDINGS: Antegrade flow in the right vertebral artery. Multiphasic flow in the right subclavian artery consistent with no flow limiting stenosis. LEFT FINDINGS: Antegrade flow in the left vertebral artery. Multiphasic flow in the left subclavian artery consistent with no flow limiting stenosis. MEASUREMENTS: +--------+--------+------+--------+--------+ RIGHT RIGHT LEFT LEFT +--------+--------+------+--------+--------+ PSV cm/s EDV cm/s Vessel PSV cm/s EDV cm/s +--------+--------+------+--------+--------+ 108 26 P. CCA 71 17 +--------+--------+------+--------+--------+ 52 18 D. CCA 52 19 +--------+--------+------+--------+--------+ 36 15 P. ICA 63 20 +--------+--------+------+--------+--------+ 62 25 M. ICA 68 28 +--------+--------+------+--------+--------+ 89 34 D. ICA 73 30 +--------+--------+------+--------+--------+ 46 11 ECA 42 11 +--------+--------+------+--------+--------+ +-----+ +----+ RIGHT LEFT +-----+ +----+ 95 Subclavian Artery (cm/s) 110 +-----+ +----+ 35 Vertebral Artery (cm/s) 57 +-----+ +----+ 1.2 ICA/CCA Ratio 1.3 +-----+ +----+ + +---------+ +--------+--------+--------+ STENT: Right PSV Right EDV cm/s Left PSV Left EDV cm/s cm/s cm/s + +---------+ +--------+--------+--------+ right CCA/ICA 52 18 Pre + +---------+ +--------+--------+--------+ 25 10 PRX Edge + +---------+ +--------+--------+--------+ 36 15 PRX + +---------+ +--------+--------+--------+ 62 25 Mid + +---------+ +--------+--------+--------+ 89 34 DST + +---------+ +--------+--------+--------+ 72 28 DST Edge + +---------+ +--------+--------+--------+ 58 22 Post + +---------+ +--------+--------+--------+ Octavio Oliver MD. Electronically signed on 05/03/2024 3:19:32 PM This study was performed and interpreted by a service accredited by the Intersocietal Accreditation Commission (IAC/Vascular), [email or web address] Report generated by [employer]. Final Procedure Note Octavio Oliver MD - 05/03/2024 VASCULAR ULTRASOUND REPORT SHEILA VIDAL : 1945 Study Date: 05/03/2024 8:58:43 AM Age: 79 years Tech: XAVI Gender: F Referring MD: SABINO MUNGUIA Site: [facility] Study performed: Carotid Indication for Study: follow-up stent Study Quality: Good TECHNIQUE: The extracranial carotid arteries, vertebral arteries and subclavianarteries were examined per exam protocol with duplex ultrasound,color-flow and spectral Doppler. Flow velocities including peak systolic(PSV), end diastolic (EDV), and velocity ratios if applicable weredocumented at sites per exam protocol. IMPRESSION: 1. Based on the ICA velocities, ICA/CCA ratio, and 2D images there isplaque causing <50% stenosis in the right internal carotid artery andthere is plaque causing <50% stenosis in the left internal carotidartery. 2. Normal antegrade flow in the right vertebral artery and normalantegrade flow in the left vertebral artery. 3. Multiphasic flow in the right subclavian artery consistent with noflow limiting stenosis and multiphasic flow in the left subclavian arteryconsistent with no flow limiting stenosis. COMPARISON: Compared to prior study 04/15/2015, s/p stenting. FINDINGS: There appears to be a less than 50 percent stenosis in the bilateralICA. The right CCA/ICA stent appears to be patent without stenosis. RIGHT FINDINGS: Antegrade flow in the right vertebral artery. Multiphasic flow in theright subclavian artery consistent with no flow limiting stenosis. LEFT FINDINGS: Antegrade flow in the left vertebral artery. Multiphasic flow in the leftsubclavian artery consistent with no flow limiting stenosis. MEASUREMENTS: +--------+--------+------+--------+--------+ RIGHT RIGHT LEFT LEFT +--------+--------+------+--------+--------+ PSV cm/s EDV cm/s Vessel PSV cm/s EDV cm/s +--------+--------+------+--------+--------+ 108 26 P. CCA 71 17 +--------+--------+------+--------+--------+ 52 18 D. CCA 52 19 +--------+--------+------+--------+--------+ 36 15 P. ICA 63 20 +--------+--------+------+--------+--------+ 62 25 M. ICA 68 28 +--------+--------+------+--------+--------+ 89 34 D. ICA 73 30 +--------+--------+------+--------+--------+ 46 11 ECA 42 11 +--------+--------+------+--------+--------+ +-----+ +----+ RIGHT LEFT +-----+ +----+ 95 Subclavian Artery (cm/s) 110 +-----+ +----+ 35 Vertebral Artery (cm/s) 57 +-----+ +----+ 1.2 ICA/CCA Ratio 1.3 +-----+ +----+ + +---------+ +--------+--------+--------+ STENT: Right PSV Right EDV cm/s Left PSV Left EDV cm/s cm/s cm/s + +---------+ +--------+--------+--------+ right CCA/ICA 52 18 Pre + +---------+ +--------+--------+--------+ 25 10 PRX Edge + +---------+ +--------+--------+--------+ 36 15 PRX + +---------+ +--------+--------+--------+ 62 25 Mid + +---------+ +--------+--------+--------+ 89 34 DST + +---------+ +--------+--------+--------+ 72 28 DST Edge + +---------+ +--------+--------+--------+ 58 22 Post + +---------+ +--------+--------+--------+ Octavio Oliver MD. Electronically signed on 05/03/2024 3:19:32 PM This study was performed and interpreted by a service accredited by theIntersocietal Accreditation Commission (IAC/Vascular),[email or web address] Report generated by [employer]. Final Sabino Munguia MD US * ANTI HCV (03/07/2021 12:41 PM CDT) HEPATITIS C ANTIBODY Non-React felix Non-React felix 03/07/2021 8:36 PM CDT [facility] Comment:Antibodies to HCV no t detected; does not exclude the possibility of exposure to HCV. Blood BLOOD SPECIMEN / Unknown Venipuncture / Unknown 03/07/2021 12:41 PM CDT 03/07/2021 12:44 PM CDT Shaina Singh MD SEND OUTS [facility] [address] [place] [address], [place] from Last 3 Months or Most Recently Relevant to Health Maintenance Advance Directives Documents on File Type Date Recorded Patient Magnetic Locater Expl anation Healthcare Directive 07/17/2008 12:00 AM ADVANCE DIRECTIVE * Full Code (Latest Code Status on File) Date Activated Date Inactivated Comments 04/05/2024 10:10 AM 04/08/2024 5:26 PM Question Answer Comments Code Status Discussion: Reviewed Preferences * Full Code Date Activated Date Inactivated Comments 03/29/2024 8:59 PM 03/30/2024 6:17 PM Question Answer Comments Code Status Discussion: Reviewed Preferences * Full Code Date Activated Date Inactivated Comments 06/03/2022 12:09 PM 06/03/2022 6:58 PM Question Answer Comments Code Status Discussion: Reviewed Preferences * Full Code Date Activated Date Inactivated Comments 04/30/2022 8:58 AM 04/30/2022 4:06 PM Question Answer Comments Code Status Discussion: Reviewed Preferences * Full Code Date Activated Date Inactivated Comments 07/07/2019 5:00 PM 07/10/2019 3:28 PM Care Teams Order Clerk Relationship Specialty Start Date End Date Shaina Singh MD [address] [facility] [place] [address] PCP - General 10/22/08 Eduardo Long MD [address] [place] [address] Sports Medicine 03/26/15 Fara Artis MD [address] [place] [address] [facility] 03/26/15 Nurses, Advanced Heart Failure [address] [place] [id number] Registered Nurse Advanced Heart Failure/Transplant Card 07/20/18 Maged Sargent MD [address] [address] Cardiology - CHF Cardiovascular Disease 07/20/18
== END 2024-07-25 10:51 | disposition home or self-care (01) ==
LOC: INJ CL 10:53
PROVIDERS: PCP Internal Medicine; Visit Provider Family Medicine
DX: M54.16 Radiculopathy, lumbar region (principal); M51.369 Other intervertebral disc degeneration, lumbar region without mention of lumbar back pain or lower extremity pain
CPT/HCPCS: 64483; J1100; Q9966